=== PATIENT | male | born 1985 | race Caucasian/White ===

== ENCOUNTER 2018-09-06 09:17 | Emergency (ER) | payer SELFPAY ==
[~2018-09-06] VITALS: Ht 175.3 cm; Wt 75.0 kg
--- NOTE | 2018-09-06 09:42 | NUR ---
TO ROOM FROM LOBBY. NAD.
[2018-09-06 10:01] LABS: BASOPHILS # (AUTO) 0.05 x10^3/uL (0-0.1); BASOPHILS % (AUTO) 0 % (0-1); EOSINOPHILS # (AUTO) 0.04 x10^3/uL (0-0.4); EOSINOPHILS % (AUTO) 0 % (1-7); LYMPHOCYTES # (AUTO) 1.89 x10^3/uL (1-3.4); LYMPHOCYTES % (AUTO) 16 % (22-44); MD NO; MEAN CORPUSCULAR HEMOGLOBIN 26.3 pg (27.5-34.5); MEAN CORPUSCULAR HGB CONC 31.7 g/dL (33.2-36.2); MEAN CORPUSCULAR VOLUME 83.1 fL (81-97); MEAN PLATELET VOLUME 8.5 fL (7.4-10.4); MONOCYTES # (AUTO) 0.72 x10^3/uL (0.2-0.8); MONOCYTES % (AUTO) 6 % (2-9); NEUTROPHILS # (AUTO) 9.21 x10^3/uL (1.8-6.8); NEUTROPHILS % (AUTO) 77 % (42-75); PLATELET COUNT 282 x10^3/uL (130-400); RED BLOOD COUNT 5.66 x10^6/uL (4.38-5.82); RED CELL DISTRIBUTION WIDTH 13.7 % (9.4-14.8)
--- NOTE | 2018-09-06 10:05 | NUR ---
PT AMBULATORY TO ROOM 36 W/ C/O DIZZINESS AND CP ON/OFF STARTED THIS AM AT 0800. PT STATES HE HAS NEVER HAD THIS HAPPEN BEFORE. PT DENIES ANY HX/RX USE. PT RESTING ON GURNEY. NADN. MONITORS APPLIED. VSS. WARM BLANKET PROVIDED. FAMILY AT BEDSIDE.
[2018-09-06 10:12] LABS: ALBUMIN 4.2 g/dL (3.4-5.0); ANION GAP 10 mmol/L (5-15); CALCIUM 9.3 mg/dL (8.5-10.1); CHLORIDE 107 mmol/L (98-107); CREATININE 1.24 mg/dL (0.7-1.3)
[2018-09-06] MEDS ORDERED: MECLIZINE CHEWABLE 25 MG TAB ONE (10:19)
[2018-09-06] MEDS ORDERED: ONDANSETRON ODT 4 MG ONE (10:19)
[2018-09-06] MEDS ORDERED: ONDANSETRON ODT 4 MG PO ONE (10:30)
[2018-09-06] MEDS ORDERED: MECLIZINE CHEWABLE 25 MG TAB PO ONE (10:30)
--- NOTE | 2018-09-06 10:46 | NUR ---
REPORT GIVEN TO AGUSTIN BECKFORD.
--- NOTE | 2018-09-06 10:52 | NUR ---
REPORT RECEIVED FROM ANICETO VELEZ.
[2018-09-06 11:20] VITALS: BP 121/70
--- NOTE | 2018-09-06 11:21 | NUR ---
pt given dc instructions and scripts. pt educated regarding dc medications. pt's aox4. resps even and unlabored. pt amb to dc with steady gait. no acute distress at dc.
== END 2018-09-06 11:21 | disposition home or self-care (01) ==
LOC: ED 10:49
DX: R42 Dizziness and giddiness (principal); F17.200 Nicotine dependence, unspecified, uncomplicated
CPT/HCPCS: 36415; 80048; 82040; 85025; 93005; 99284; Q0162

== ENCOUNTER 2019-05-09 06:10 | Emergency (ER) | payer OTHER ==
[~2019-05-09] VITALS: Ht 175.3 cm; Wt 70.4 kg
[2019-05-09] MEDS ORDERED: MORPHINE SULFATE 4 MG/ML, 1ML ONE ×2 (06:26→07:24)
[2019-05-09] MEDS ORDERED: ONDANSETRON 2MG/ML, 2ML ONE (06:26)
[2019-05-09] MEDS ORDERED: SODIUM CHLORIDE FLUSH 10ML SYR IVF ONE (06:30)
[2019-05-09] MEDS ORDERED: ONDANSETRON 2MG/ML, 2ML IVPush ONE (06:30)
[2019-05-09] MEDS ORDERED: SODIUM CHLORIDE 0.9% 1,000ML IVBOLUS ONE (06:30)
[2019-05-09] MEDS: MORPHINE SULFATE 4 MG/ML, 1ML IVPush PRN ×2 (06:35→07:25)
[2019-05-09 06:36] LABS: BASOPHILS # (AUTO) 0.05 x10^3/uL (0-0.1); BASOPHILS % (AUTO) 0 % (0-1); EOSINOPHILS # (AUTO) 0.16 x10^3/uL (0-0.4); EOSINOPHILS % (AUTO) 1 % (1-7); LYMPHOCYTES # (AUTO) 3.34 x10^3/uL (1-3.4); LYMPHOCYTES % (AUTO) 27 % (22-44); MD NO; MEAN CORPUSCULAR HEMOGLOBIN 27.5 pg (27.5-34.5); MEAN CORPUSCULAR HGB CONC 33.3 g/dL (33.2-36.2); MEAN CORPUSCULAR VOLUME 82.4 fL (81-97); MEAN PLATELET VOLUME 8.2 fL (7.4-10.4); MONOCYTES # (AUTO) 0.77 x10^3/uL (0.2-0.8); MONOCYTES % (AUTO) 6 % (2-9); NEUTROPHILS # (AUTO) 8.05 x10^3/uL (1.8-6.8); NEUTROPHILS % (AUTO) 65 % (42-75); PLATELET COUNT 304 x10^3/uL (130-400); RED BLOOD COUNT 5.67 x10^6/uL (4.38-5.82); RED CELL DISTRIBUTION WIDTH 13.4 % (9.4-14.8)
--- NOTE | 2019-05-09 06:37 | NUR ---
PT C/O HEAD ACHE THAT STARTED WHEN HE WOKE UP THIS AM
[2019-05-09 06:50] LABS: ALBUMIN 3.9 g/dL (3.4-5.0); ANION GAP 7 mmol/L (5-15); CHLORIDE 113 mmol/L (98-107)
--- NOTE | 2019-05-09 07:05 | NUR ---
RECEIVED REPORT FROM JARRET VELEZ AND ASSUMED CARE. PT C/O PATEL AND TO BE REMEDICATED FOR SAME
--- NOTE | 2019-05-09 07:06 | NUR ---
ABOVE NOTE WRITTEN BY FORREST
[2019-05-09] MEDS ORDERED: METOCLOPRAMIDE 5 MG/ML, 2ML ONE (07:13)
[2019-05-09] MEDS ORDERED: KETOROLAC 30 MG/1 ML ONE (07:13)
[2019-05-09] MEDS ORDERED: METOCLOPRAMIDE 5 MG/ML, 2ML IVPush ONE (07:30)
[2019-05-09] MEDS ORDERED: KETOROLAC 30 MG/1 ML IVPush ONE (07:30)
--- NOTE | 2019-05-09 07:30 | NUR ---
MD AT BEDSIDE DISCUSSING RESULTS OF TESTS
[2019-05-09 08:17] VITALS: BP 106/67
--- NOTE | 2019-05-09 08:17 | NUR ---
PT STATES PAIN NOW 04/27 DISCHARGE PAPERS GIVEN
== END 2019-05-09 08:20 | disposition home or self-care (01) ==
LOC: ED 07:17
DX: R51 Headache (principal); R11.2 Nausea with vomiting, unspecified; F17.200 Nicotine dependence, unspecified, uncomplicated
CPT/HCPCS: 36415; 70450; 80048; 82040; 85025; 96374; 96375; 96376; 99284; J1885; J2270; J2405; J2765; J7030

== ENCOUNTER 2020-04-15 16:30 | Emergency (ER) | payer SELFPAY ==
[~2020-04-15] VITALS: Ht 175.3 cm; Wt 73.0 kg
[2020-04-15 16:37] VITALS: BP 154/92
== END 2020-04-15 20:00 | disposition home or self-care (01) ==
LOC: ED 19:24
DX: S52.531A Colles' fracture of right radius, initial encounter for closed fracture (principal); S52.614A Nondisplaced fracture of right ulna styloid process, initial encounter for closed fracture; W18.30XA Fall on same level, unspecified, initial encounter; Y93.89 Activity, other specified; Y92.89 Other specified places as the place of occurrence of the external cause; Y99.8 Other external cause status
CPT/HCPCS: 29125; 99283

== ENCOUNTER 2020-05-04 15:44 | Emergency (ER) | payer SELFPAY ==
[~2020-05-04] VITALS: Ht 175.3 cm; Wt 73.0 kg
[2020-05-04 15:47] VITALS: BP 147/78
--- NOTE | 2020-05-04 16:01 | NUR ---
SPLINT LOOSENED. PT SEEN BY MIRELA ALCANTAR
[2020-05-04] MEDS ORDERED: HYDROcodone/APAP 5/325 TABLET PO ONE (16:30)
[2020-05-04] MEDS ORDERED: HYDROcodone/APAP 5/325 TABLET ONE (16:32)
--- NOTE | 2020-05-04 16:39 | NUR ---
Task RN: zac care of pt for medication administration only. pt medicated per order. splint in place. pt advised not to drive afte [place]co. pt verbalized understanding. pt bother at bedside to drive him home
--- NOTE | 2020-05-04 16:46 | NUR ---
CARE FOR DC ONLY PROVIDED. PT WITH NEW SPLINT IN PLACE. CMS INTACT. NO SIG CHANGE IN PAIN LEVEL AT THIS TIME. REVIEWED DC INSTRUCTIONS WITH PT, UNDERSTANDING VERBALIZED. PT LEFT AMB, GAIT STEADY,
== END 2020-05-04 16:48 | disposition home or self-care (01) ==
LOC: ED 16:47
DX: S52.611A Displaced fracture of right ulna styloid process, initial encounter for closed fracture (principal); S52.91XA Unspecified fracture of right forearm, initial encounter for closed fracture; W19.XXXA Unspecified fall, initial encounter; Y93.89 Activity, other specified; Y92.488 Other paved roadways as the place of occurrence of the external cause; Y99.8 Other external cause status
CPT/HCPCS: 29125; 99283